=== PATIENT | female | born 1935 | race Caucasian/White ===

== ENCOUNTER 2021-01-30 10:24 | Inpatient (IN) | payer MEDICARE, OTHER ==
[~2021-01-30] VITALS: Ht 170.2 cm; Wt 59.9 kg
[2021-01-30] MEDS ORDERED: MAG HYDROX/AL HYDROX/SIMETH 30 ML UDC PO PRN (11:00)
[2021-01-30] MEDS ORDERED: MAGNESIUM HYDROXIDE 30 ML UDC PO PRN (11:00)
[2021-01-30] MEDS ORDERED: LEFL10TA16 PO (11:10)
[2021-01-30] MEDS ORDERED: SERT25TA5 PO (11:10)
[2021-01-30] MEDS ORDERED: BUSP5TAB3 PO (11:10)
[2021-01-30] MEDS ORDERED: CALC-883 PO (11:10)
[2021-01-30] MEDS ORDERED: DIGO125T PO (11:10)
[2021-01-30] MEDS ORDERED: ALPR0.255 PO (11:10)
[2021-01-30] MEDS ORDERED: DILT120T14 PO (11:10)
[2021-01-30 11:28] VITALS: BP 146/92
[2021-01-30] MEDS ORDERED: BLOOD SUGAR DIAGNOSTIC 1 EACH STRIP IN ONE (11:30)
[2021-01-30] MEDS: LORAZEPAM 0.5 MG TABLET PO PRN (12:26)
[2021-01-30] MEDS ORDERED: CLOP75TA15 PO (13:24)
--- NOTE | 2021-01-30 14:51 | NUR ---
JODI Initial Discharge Plan: Pt was currently residing at a assisted living located at [address] [place] [address]. Pt daughter Destiny ([phone]) is the DPOA and sent this SW the documents. Daughter stated pt has been kicked out of her assisted living and is in the process of finding a different facility. SW gave daughter options and daughter is open for nursing facility if unable to find her an assisted living. JODI will work with the MD and treatment team to coordinate appropriate discharge.
--- NOTE | 2021-01-30 14:52 | NUR ---
JODI Family Contact: JODI contacted pt's daughter Destiny ([phone]) to gather collateral. Daughter is DPOA and documents are sent. Daughter stated pt has been kicked out of her assisted living and is in the process of finding a different facility. SW gave daughter options and daughter is open for nursing facility if unable to find her an assisted living. Daughter appears to be in denial of pts suicidal attempt and is minimizing pt's symptoms. JODI explained 5028/1250 process.
--- NOTE | 2021-01-30 14:52 | NUR ---
DPOA Documents: Pt's DPOA is daughter Destiny ([phone]) and this SW placed in pt's chart.
--- NOTE | 2021-01-30 15:06 | NUR ---
Received a call from the daughter Destiny and telling that they don't want the pt. to take a Zoloft because of the side effects. Notified Dr. Somers was notified and ordered to D/C Zoloft.
--- NOTE | 2021-01-30 15:13 | NUR ---
[facility]: SW spoke with Melba Director ([phone]) who stated that they are accepting pt and would want to assess pt on 02/05 or 02/06. She will notify this SW.
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
--- NOTE | 2021-01-30 15:45 | NUR ---
RN-CO: Notified Dr Erickson to reconcile home medications. stated "sure."
[2021-01-30 16:00] VITALS: BP 150/86
[2021-01-30] MEDS: busPIRone 5 MG TABLET PO SCH (16:28)
[2021-01-30] MEDS ORDERED: busPIRone 5 MG TABLET PO SCH (17:00)
[2021-01-30 20:00] VITALS: BP 153/67
--- NOTE | 2021-01-30 21:00 | NUR ---
RN NOTE PATIENT'S DAUGHTER LEXX CALLED TO GET AN UPDATE ABOUT PATIENT'S HEALTH CONDITION. UPDATE PROVIDED. PER LEXX, SHE IS TRYING HARD TO FIND A PLACE FOR HER MOTHER TO BE DISCHARGED. SHE WILL VISIT HER MOTHER ON 02/01/21 AFTERNOON BUT PATIENT'S PRINCIPAL STATISTICAL SCIENTIST WILL VISIT THE PATIENT ON 01/31/21 IN THE EVENING. DAUGHTER REQUESTED TO NOTIFY AM RN TO CALL HER IF PATIENT NEEDS ANYTHING SO LEXX COULD SEND IT WITH THE PRINCIPAL STATISTICAL SCIENTIST WO WILL BE VISITING THE PATIENT ON 01/31/21 IN THE EVENING. LEXX LEFT A MESSAGE FOR HER MOTHER & MESSAGE WAS RELAYED TO THE PATIENT.
--- NOTE | 2021-01-31 06:46 | NUR ---
RN NOTE: PATIENT SLEPT WELL AT NIGHT, NOTED TO BE FORGETFUL AT TIMES, NEEDS REDIRECTIONS FREQUENTLY. SNACK WAS OFFERED TO THE PATIENT & TOLERATED WELL. NO CHANGE OF CONDITION OR BEHAVIOR EPISODE NOTED AT NIGHT. REDIRECTABLE THROUGH OUT THE SHIFT. WILL ENDORSE TO AM RN.
--- NOTE | 2021-01-31 07:14 | NUR ---
RN NOTE PATIENT IS AWAKE & AMBULATING IN THE HALLWAY WITH STAND BY ASSIST AND USING HER WALKER. PATIENT HAS UNSTEADY GAIT, FALL RISK. NO ACUTE CHANGES NOTED AT THIS TIME. WILL ENDORSE TO AM RN FOR CONTINUITY OF CARE.
[2021-01-31 07:39] LABS: ALBUMIN 3.1 g/dL (3.4-5.0); BILIRUBIN,TOTAL 0.4 mg/dL (0.2-1.0); CALCIUM, SERUM 8.6 mg/dL (8.5-10.1); CREATININE 0.6 mg/dL (0.6-1.3); TOTAL PROTEIN, SERUM 6.4 g/dL (6.4-8.2)
[2021-01-31 07:44] LABS: CHOLESTEROL 216 mg/dL (<200); HDL CHOLESTEROL 106 mg/dL (40-60); LDL 86 mg/dL (0-99); TRIGLYCERIDES 52 mg/dL (30-150)
[2021-01-31 08:00] VITALS: BP 148/85
[2021-01-31] MEDS: DIGOXIN 0.125 MG TABLET PO SCH (08:47)
[2021-01-31] MEDS: DILTIAZEM HCL CD 120 MG PO SCH (08:48)
[2021-01-31] MEDS: CLOPIDOGREL BISULFATE 75 MG TABLET PO SCH (08:48)
[2021-01-31] MEDS: busPIRone 5 MG TABLET PO SCH ×2 (08:48→17:05)
[2021-01-31] MEDS: LEFLUNOMIDE 10 MG TABLET PO SCH (10:33)
[2021-01-31] MEDS ORDERED: SERTRALINE HCL 25 MG TABLET PO SCH (13:00)
[2021-01-31 15:57] VITALS: BP 150/83
--- NOTE | 2021-01-31 19:30 | NUR ---
GPS RN NOTE, RECEIVED PATIENT AWAKE AND IN BED, NO S/S OR COMPLAINTS OF PAIN AT THIS TIME. PATIENT IS DISPLAYING NO S/S OF APPARENT DISTRESS AT THIS TIME. PATIENT BREATHING IS UNLABORED WITH EQUAL RISE AND FALL OF THE CHEST. PATIENT IS ALERT AND ORIENTED X 2-3 ON ROOM AIR WITH A SPO2 96%. PATIENT IS COMPLIANT WITH MEDICATIONS, ANXIOUS AT TIMES, NEEDY, DISORGANIZED, HARD OF HEARING, COOPERATIVE AND NEEDS REDIRECTION. PATIENT DENIES SUICIDAL AND HOMICIDAL IDEATIONS AT THIS TIME. PATIENT ASSISTED WITH TURNING AND REPOSITIONING Q2HR AND PRN FOR COMFORT AND CIRCULATION. PATIENT HAS NO NEEDS AT THIS TIME. PATIENT EDUCATED ON THE USE OF THE CALL RANDALL. PATIENT BED SIDE RAILS UP X 2 FOR SAFETY. PATIENT BED IS LOCKED, LOW, WITH BED ALARM ON. WILL CONTINUE TO MONITOR THIS PATIENT Q15 MINUTES WITH THE HELP OF STAFF TO MAINTAIN SAFETY.
[2021-01-31 20:16] VITALS: BP 142/54
[2021-01-31] MEDS: TEMAZEPAM 7.5 MG CAPSULE PO PRN (21:27)
--- NOTE | 2021-01-31 21:27 | NUR ---
GPS RN NOTE, PATIENT HAS A COMPLAINT OF NOT BEING ABLE TO SLEEP AND IS REQUESTING RESTORIL AT THIS TIME. PATIENT VITAL SIGNS ARE STABLE. GAVE RESTORIL 7.5MG PO HS PRN ORDERED. WILL REASSESS FOR INSOMNIA AND I WILL CONTINUE TO MONITOR THIS PATIENT WITH THE HELP OF STAFF.
[2021-02-01 08:00] VITALS: BP 136/76
[2021-02-01] MEDS: DIGOXIN 0.125 MG TABLET PO SCH (09:08)
[2021-02-01] MEDS: CLOPIDOGREL BISULFATE 75 MG TABLET PO SCH (09:09)
[2021-02-01] MEDS: DILTIAZEM HCL CD 120 MG PO SCH (09:09)
[2021-02-01] MEDS: LEFLUNOMIDE 10 MG TABLET PO SCH (09:09)
[2021-02-01] MEDS: busPIRone 5 MG TABLET PO SCH ×2 (09:09→16:47)
[2021-02-01] MEDS ORDERED: POLYVINYL ALCOHOL 15 ML BOTTLE EACHEYE PRN (10:00)
[2021-02-01] MEDS ORDERED: MINERAL OIL/PETROL OINT 396 GM JAR TP PRN (14:00)
[2021-02-01 16:00] VITALS: BP 150/69
[2021-02-01 20:08] VITALS: BP 127/61
[2021-02-01 20:12] VITALS: BP 127/61
[2021-02-01] MEDS: TEMAZEPAM 7.5 MG CAPSULE PO PRN (21:28)
--- NOTE | 2021-02-01 21:29 | NUR ---
RN NOTE: INSOMNIA PATIENT VERBALIZED C/O INABILITY TO SLEEP AND REQUESTED SLEEPING PILL. PRN RESTORIL 7.5 MG 1 CAP PO ADMINISTERED. WILL CONTINUE TO MONITOR THE PATIENT CLOSELY FOR ANY CHANGES.
[2021-02-02 08:00] VITALS: BP 156/59
[2021-02-02] MEDS: LEFLUNOMIDE 10 MG TABLET PO SCH (08:40)
[2021-02-02] MEDS: CLOPIDOGREL BISULFATE 75 MG TABLET PO SCH (08:42)
[2021-02-02] MEDS: busPIRone 5 MG TABLET PO SCH ×2 (08:42→17:53)
[2021-02-02] MEDS: DILTIAZEM HCL CD 120 MG PO SCH (08:42)
[2021-02-02] MEDS: DIGOXIN 0.125 MG TABLET PO SCH (08:43)
[2021-02-02 16:08] VITALS: BP 143/62
[2021-02-02 19:57] VITALS: BP 153/83
[2021-02-02] MEDS: TEMAZEPAM 7.5 MG CAPSULE PO PRN (21:30)
--- NOTE | 2021-02-03 07:30 | NUR ---
RN NOTES RECEIVED PATIENT RESTING BED,ALERT,GUARDED, NO ACUTE DISTRESS NOTED. COMPLIANT WITH DAILY MEDS. PT IS HARD TO HEARING.VSS. AMBULATORY WITH WALKER. SAFETY PRECAUTIONS OBSERVED ALL NEEDS ATTENDED AND ANTICIPATED. WILL CONTINUE MONITORING Q15MIN FOR SAFETY AND BEHAVIOR.
[2021-02-03 08:00] VITALS: BP 151/67
[2021-02-03] MEDS: DILTIAZEM HCL CD 120 MG PO SCH (09:37)
[2021-02-03] MEDS: DIGOXIN 0.125 MG TABLET PO SCH (09:37)
[2021-02-03] MEDS: LORAZEPAM 0.5 MG TABLET PO PRN (09:37)
[2021-02-03] MEDS: busPIRone 5 MG TABLET PO SCH ×2 (09:37→16:53)
[2021-02-03] MEDS: CLOPIDOGREL BISULFATE 75 MG TABLET PO SCH (09:38)
[2021-02-03] MEDS: LEFLUNOMIDE 10 MG TABLET PO SCH (09:40)
--- NOTE | 2021-02-03 11:14 | NUR ---
Insurance: Clinicals were sent to ([phone]) for pt's insurance. JODI was notified by [facility] ([phone]) rn case manager hospice to send. Addendum: 02/03/21 at 1121 by JODI AVILA (F:[phone])
--- NOTE | 2021-02-03 15:29 | NUR ---
JODI Family Contact: JODI contacted pt's daughter Destiny ([phone]) to notify of 5250 hearing and left a detailed voicemail. Daughter unavailable.
[2021-02-03 16:00] VITALS: BP 151/90
--- NOTE | 2021-02-03 16:06 | NUR ---
SW Family Contact: Pt's daughter Destiny ([phone]) was present in pt's 2960 hearing.
--- NOTE | 2021-02-03 16:08 | NUR ---
Court Hearing: Patient's court hearing was today for 5250 and it was upheld for GD and danger to self.
[2021-02-03 16:21] VITALS: BP 151/90
[2021-02-03 20:09] VITALS: BP 111/52
[2021-02-04 08:00] VITALS: BP 154/87
[2021-02-04] MEDS: DILTIAZEM HCL CD 120 MG PO SCH (09:04)
[2021-02-04] MEDS: DIGOXIN 0.125 MG TABLET PO SCH (09:04)
[2021-02-04] MEDS: busPIRone 5 MG TABLET PO SCH ×2 (09:04→17:34)
[2021-02-04] MEDS: CLOPIDOGREL BISULFATE 75 MG TABLET PO SCH (09:04)
[2021-02-04] MEDS: LEFLUNOMIDE 10 MG TABLET PO SCH (09:07)
--- NOTE | 2021-02-04 09:13 | NUR ---
Insurance: Case#[id number], Auth#[id number]. Apolinar Adams from [place] and fax#[phone]. JODI sent clinicals daily.
--- NOTE | 2021-02-04 10:34 | NUR ---
[facility]: JODI spoke with Melba Director ([phone]) stated they will evaluate pt 02/05 at 9AM.
[2021-02-04 16:31] VITALS: BP 128/49
[2021-02-04 20:13] VITALS: BP 135/63
[2021-02-04] MEDS: TEMAZEPAM 7.5 MG CAPSULE PO PRN (21:42)
[2021-02-05] MEDS: ACETAMINOPHEN 325 MG TABLET PO PRN (06:15)
[2021-02-05 08:00] VITALS: BP 139/74
[2021-02-05] MEDS: CLOPIDOGREL BISULFATE 75 MG TABLET PO SCH (09:27)
[2021-02-05] MEDS: DILTIAZEM HCL CD 120 MG PO SCH (09:27)
[2021-02-05] MEDS: DIGOXIN 0.125 MG TABLET PO SCH (09:28)
[2021-02-05] MEDS: busPIRone 5 MG TABLET PO SCH ×2 (09:28→17:24)
[2021-02-05] MEDS: LEFLUNOMIDE 10 MG TABLET PO SCH (09:29)
--- NOTE | 2021-02-05 11:51 | NUR ---
Insurance: Case#[id number], Auth#[id number]. Apolinar Adams from [place] and fax#[phone]. JODI sent clinicals daily.
--- NOTE | 2021-02-05 13:05 | NUR ---
[facility] Christie [facility]: SW spoke with Melba Director ([phone]) who stated they are accepting pt.
[2021-02-05 16:00] VITALS: BP 138/76
--- NOTE | 2021-02-05 18:00 | NUR ---
keeps to self,quiet.vital signs wnl.needy.
[2021-02-05 20:00] VITALS: BP 136/51
[2021-02-05] MEDS: TEMAZEPAM 7.5 MG CAPSULE PO PRN (21:49)
--- NOTE | 2021-02-05 21:50 | NUR ---
GPS- RN NOTE: INSOMNIA PATIENT C/O INABILITY TO SLEEP AND REQUESTED SLEEPING PILL. PRN RESTORIL 7.5 MG 1 CAP PO ADMINISTERED. WILL CONTINUE TO MONITOR.
[2021-02-06 08:00] VITALS: BP 150/90
[2021-02-06] MEDS: DILTIAZEM HCL CD 120 MG PO SCH (08:31)
[2021-02-06] MEDS: busPIRone 5 MG TABLET PO SCH ×2 (08:32→16:27)
[2021-02-06] MEDS: DIGOXIN 0.125 MG TABLET PO SCH (08:32)
[2021-02-06] MEDS: LEFLUNOMIDE 10 MG TABLET PO SCH (08:32)
[2021-02-06] MEDS: CLOPIDOGREL BISULFATE 75 MG TABLET PO SCH (08:32)
--- NOTE | 2021-02-06 15:00 | NUR ---
Insurance: Case#[id number], Auth#[id number]. Apolinar Adams from [place] and fax#[phone]. JODI sent clinicals daily. Addendum: 02/07/21 at 1204 by JODI AVILA Insurance: Case#[id number], Auth#[id number]. Apolinar Adams from [place] and fax#[phone]. JODI sent clinicals daily.
[2021-02-06 16:00] VITALS: BP 150/80
[2021-02-06] MEDS: LORAZEPAM 0.5 MG TABLET PO PRN (19:36)
--- NOTE | 2021-02-06 19:45 | NUR ---
RN NOTES : ANXIETY PT. NOTED VERY ANXIOUS SCREAMING YELLING PACING IN THE HALLWAY ATIVAN 0.5 MG PO PRN GIVEN , WILL CONTINUE TO MONITOR. Addendum: 02/08/21 at 1921 by BECK GAYTAN RN PATIENT IS ANXIOUS, RESTLESS, AGITAED,UNCOOPRTIVE RESTLESS,PARANOID,PACING IN HALLWAY SCREAMING YELLING BILATERAL HARD OF HEARING, FORGETFUL, VERY NEEDY,DEMENDING, ARGUMENTATIVE WITH STAFF DISORGNIZED ,AMBULATING WITHOUT WALKER AND REFUSED TO USE WALKER FOR HER SAFETY,NON COMPLIANT WITH CARE, NON REDIRECTABLE. DENIES SI/HI AT THIS TIME. SAFETY PRECAUTIONS IN PLACE. WILL CONTINUE TO MONITOR .
[2021-02-06 20:00] VITALS: BP 133/90
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
[2021-02-07 08:00] VITALS: BP 116/72
[2021-02-07] MEDS: CLOPIDOGREL BISULFATE 75 MG TABLET PO SCH (08:41)
[2021-02-07] MEDS: DILTIAZEM HCL CD 120 MG PO SCH (08:41)
[2021-02-07] MEDS: busPIRone 5 MG TABLET PO SCH ×2 (08:42→16:23)
[2021-02-07] MEDS: LEFLUNOMIDE 10 MG TABLET PO SCH (08:42)
[2021-02-07] MEDS: DIGOXIN 0.125 MG TABLET PO SCH (08:42)
--- NOTE | 2021-02-07 10:20 | NUR ---
Skin tear seen by Priscila ROBLES and ordered Triple antibiotic daily.
[2021-02-07] MEDS: NEOMY SULF/BACITRAC ZN/POLY 15 GM TUBE TP SCH (11:07)
[2021-02-07] MEDS: ACETAMINOPHEN 325 MG TABLET PO PRN (15:30)
[2021-02-07 16:00] VITALS: BP 141/71
--- NOTE | 2021-02-07 19:00 | NUR ---
RN NOTES: I SPOKE TO LASER BEAM MACHINE OPERATOR ON 02/07/21 AROUND 1900 ABOUT PATIENT'S BEHAVIOR OF 02/06/19 FOR BLOCK OPERATOR PATIENT IS ANXIOUS, RESTLESS, AGITAED,UNCOOPRTIVE RESTLESS,PARANOID,PACING IN HALLWAY AND HER ROOM SCREAMING YELLING, NEEDY ARGUMENTATIVE WITH STAFF, CONFUSED ,FORGETFUL DISORGNIZED ,ATTEMPTING TO GETTING OUT THE BED OFTEN NOT USING WALKER FOR FAR SAFETY,NOT STAYING IN THE BED AND BANGING SIDE RAILS AND PT. SKIN IS VERY FRAGILE EASILY OPEN AND SKIN DISCOLORATIONS, ALL NEEDS ATTENDED ANTICIPATED PT. NON COMPLIANT WITH CARE , NON REDIRECTABLE THE LASER BEAM MACHINE OPERATOR STATES THAT PATIENT EXPERIENCES ANXIETY PANIC EPISODE OFTEN . WILL CONTINUE TO MONITOR FOR SAFETY AND BEHAVIOR
[2021-02-07] MEDS: LORAZEPAM 0.5 MG TABLET PO PRN (20:16)
--- NOTE | 2021-02-07 20:20 | NUR ---
GPS RN NOTES: PATIENT IS ANXIOUS, RESTLESS AND SHAKING. AMBULATING WITHOUT WALKER AND REFUSING TO USE WALKER FOR HER SAFETY WHEN OFFERED ONE. ATIVAN 0.5MG/1TAB GIVEN PO AT 2016. WILL CONTINUE TO MONITOR.
[2021-02-07 21:21] VITALS: BP 154/65
[2021-02-08 08:00] VITALS: BP 140/58
[2021-02-08] MEDS: busPIRone 5 MG TABLET PO SCH ×2 (08:54→16:41)
[2021-02-08] MEDS: CLOPIDOGREL BISULFATE 75 MG TABLET PO SCH (08:54)
[2021-02-08] MEDS: DILTIAZEM HCL CD 120 MG PO SCH (08:54)
[2021-02-08] MEDS: NEOMY SULF/BACITRAC ZN/POLY 15 GM TUBE TP SCH (08:55)
[2021-02-08] MEDS: LEFLUNOMIDE 10 MG TABLET PO SCH (08:55)
[2021-02-08] MEDS: DIGOXIN 0.125 MG TABLET PO SCH (09:23)
[2021-02-08] MEDS ORDERED: POLYETHYLENE GLYCOL 3350 17 GM POWD.PACK PO PRN (09:30)
--- NOTE | 2021-02-08 10:54 | NUR ---
GIVEN MIRALAX FOR C/O CONSTIPATION.
[2021-02-08 16:18] VITALS: BP 155/82
--- NOTE | 2021-02-08 16:28 | NUR ---
INFORMED RN THAT SHE HAD BM,APPEARS MORE COMFORTABLE.
--- NOTE | 2021-02-08 18:40 | NUR ---
PHOTO TAKEN OF SKIN TEAR.
--- NOTE | 2021-02-08 18:40 | NUR ---
SKIN TEAR 4TH FINGER RT. HAND
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
[2021-02-08 20:00] VITALS: BP 145/60
--- NOTE | 2021-02-08 20:10 | NUR ---
GPS RN NOTE PATIENT PACING AROUND. GIVEN ATIVAN 0.5 AT THIS TIME.
[2021-02-08] MEDS: LORAZEPAM 0.5 MG TABLET PO PRN (20:40)
[2021-02-08] MEDS: TEMAZEPAM 7.5 MG CAPSULE PO PRN (21:45)
--- NOTE | 2021-02-08 21:45 | NUR ---
GPS RN NOTE PER PATIENT REQUEST GIVEN RESTORIL FOR SLEEP.
[2021-02-09] MEDS: ACETAMINOPHEN 325 MG TABLET PO PRN (06:05)
--- NOTE | 2021-02-09 06:05 | NUR ---
GPS RN NOTE PATIENT C/O GENERALIZED PAIN BECAUSE OF HER ARTHRITIS PER PATIENT. REQUESTED TYLENOL AND JELLO AT THIS TIME. GIVEN.
[2021-02-09 08:00] VITALS: BP 140/62
[2021-02-09] MEDS: DILTIAZEM HCL CD 120 MG PO SCH (08:51)
[2021-02-09] MEDS: busPIRone 5 MG TABLET PO SCH ×2 (08:51→16:33)
[2021-02-09] MEDS: CLOPIDOGREL BISULFATE 75 MG TABLET PO SCH (08:52)
[2021-02-09] MEDS: LORAZEPAM 0.5 MG TABLET PO PRN (08:52)
[2021-02-09] MEDS: DIGOXIN 0.125 MG TABLET PO SCH (08:52)
[2021-02-09] MEDS: NEOMY SULF/BACITRAC ZN/POLY 15 GM TUBE TP SCH (08:53)
[2021-02-09] MEDS: LEFLUNOMIDE 10 MG TABLET PO SCH (08:53)
--- NOTE | 2021-02-09 08:57 | NUR ---
RN-CO: ATIVAN GIVEN FOR RESTLESSNESS AND ANXIETY.
[2021-02-09 16:00] VITALS: BP 145/70
[2021-02-09 17:08] LABS: BILIRUBIN,URINE NEGATIVE (NEGATIVE); COLOR,URINE YELLOW (YELLOW); LEUKOCYTE ESTERASE ,URINE NEGATIVE (NEGATIVE); NITRITE, URINE NEGATIVE (NEGATIVE); PH,URINE 6.5 (5.0-8.0); PROTEIN,URINE NEGATIVE (NEGATIVE); UGLUCOSE NEGATIVE (NEGATIVE); UROBILINOGEN,URINE 0.2 EU/dL (0.2)
[2021-02-09 20:26] VITALS: BP 131/73
[2021-02-09] MEDS: TEMAZEPAM 7.5 MG CAPSULE PO PRN (21:02)
[2021-02-10] MEDS: ACETAMINOPHEN 325 MG TABLET PO PRN (05:05)
--- NOTE | 2021-02-10 05:06 | NUR ---
GPS-RN NOTES: TYLENOL 650MG PO GIVEN C/O HEADACHE. WILL CONTINUE TO MONITOR.
--- NOTE | 2021-02-10 07:57 | NUR ---
SW Discharge Note: Patient will be discharged to [facility] located at [address] [place] [address], [place] [address]; ([phone]). Patients daughter Destiny ([phone]) will picker machine operator pt at 12PM. Patients daughter YSABEL Dixon ([phone]) is aware and agreeable with discharge. Melba Director of [facility] ([phone]) is accepting pt today. Pt denies suicidal or homicidal ideation. Pt denies visual/auditory hallucinations. Patient will follow up with BASHIR Hawkins located at [facility] ([phone]) on February 10 at 8:30AM VIA TELEHEALTH. Patient will follow up with (Wireless Sales Manager) Jose Guadalupe Ruano located at [facility] [address] [facility], [address]; ([phone]) on March 17 at 10AM and will monitor and provide psychotropic medications. Patient presents with euthymic mood and congruent affect.
[2021-02-10 08:00] VITALS: BP 155/73
[2021-02-10 09:14] VITALS: BP 155/73
[2021-02-10] MEDS: DIGOXIN 0.125 MG TABLET PO SCH (09:14)
[2021-02-10] MEDS: busPIRone 5 MG TABLET PO SCH (09:14)
[2021-02-10] MEDS: DILTIAZEM HCL CD 120 MG PO SCH (09:14)
[2021-02-10] MEDS: CLOPIDOGREL BISULFATE 75 MG TABLET PO SCH (09:14)
[2021-02-10] MEDS: LEFLUNOMIDE 10 MG TABLET PO SCH (09:15)
[2021-02-10] MEDS: NEOMY SULF/BACITRAC ZN/POLY 15 GM TUBE TP SCH (09:20)
--- NOTE | 2021-02-10 13:17 | NUR ---
Patient has been discharged to [facility]. Patients cole Dixon ([phone]) picked Pt up pt at 1300PM. Patients daughter YSABEL Dixon ([phone]) is aware and agreeable with discharge. Melba Director of [facility] ([phone]) is accepting pt today. Pt denies suicidal or homicidal ideation. Pt denies visual/auditory hallucinations. Exit Care instructions given to daughter in discharge packet. Prescriptions and med reconciliation given in discharge packet. Pictures in chart. All belongings and valuables returned and signed. Pt escorted by staff from unit at 1300. Patient will follow up with BASHIR Hawkins located at [facility] ([phone]) on February 10 at 8:30AM VIA TELEHEALTH. Patient will follow up with (Patient Account Liaison) Jose Guadalupe Ruano located at [facility] [address] [facility], [address]; ([phone]) on March 17 at 10AM and will monitor and provide psychotropic medications. Patient presents with euthymic mood and congruent affect.
== END 2021-02-10 13:00 | DRG 885 ==
LOC: GPS 10:24
PROVIDERS: ADMIT Psychiatry & Neurology Psychosomatic Medicine; ATTEND Registered Nurse
DX: F39 Unspecified mood [affective] disorder (principal); D68.59 Other primary thrombophilia; F32.A Depression, unspecified; E78.5 Hyperlipidemia, unspecified; I48.0 Paroxysmal atrial fibrillation; Z86.73 Personal history of transient ischemic attack (TIA), and cerebral infarction without residual deficits; F29 Unspecified psychosis not due to a substance or known physiological condition; H90.5 Unspecified sensorineural hearing loss; I10 Essential (primary) hypertension; G31.84 Mild cognitive impairment of uncertain or unknown etiology; X78.9XXD Intentional self-harm by unspecified sharp object, subsequent encounter; F41.9 Anxiety disorder, unspecified; Z73.6 Limitation of activities due to disability
CPT/HCPCS: 36415; 71045-TC; 80053-TC; 80061-TC; 80162-TC; 87081-TC; 97116-TC; 97530-TC